=== PATIENT | male | born 2000 | race African-American/Black ===

== ENCOUNTER 2024-10-23 08:52 | Emergency (ER) | payer OTHER, SELFPAY ==
[2024-10-23 08:56] VITALS: BP 142/94; PULSE 69; TEMP 36.8; O2SAT 99; BMI 26.9
--- NOTE | 2024-10-23 09:07 | XR_ITS ---
The [address] [address] Patient Name: DAVE MATA MRN: [id number] date: 2000 Sex: M Assigned Patient Location: ER Current Patient Location: ER Accession/Order Number: [id number] Exam Date: 10/23/2024 09:50 Report Date: 10/23/2024 09:51 At the request of: BENITEZ CHRISTIAN MD Procedure: XR foot RT min 3V RIGHT FOOT - 3 views CLINICAL HISTORY: Right foot injury yesterday. Now with pain. COMPARISON: None FINDINGS: Soft tissue swelling is present. No acute bony process is seen. Joint spaces appear maintained. XR/XR foot RT min 3V IMPRESSION: SOFT TISSUE SWELLING WITHOUT ACUTE BONY PROCESS. Impression dictated by: George Chappell Jr. DJanethOJaneth 10/23/2024 9:51 AM Dictation Location: [place] [address] Electronically authenticated by: [id number] Y Date: 10/23/2024 09:51
[2024-10-23] MEDS: IBUPROFEN 600 MG TABLET PO (09:24)
[2024-10-23] MEDS: BACITRACIN 0.9 GM PACKET 1 PACKET TOPICAL (09:24)
[2024-10-23] MEDS: ADACEL DIPH,PERTUSS(ACELL),TET VAC/PF 0.5 ML ADULT SYRINGE IM (09:25)
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
== END 2024-10-23 10:41 | disposition home or self-care (01) ==
PROVIDERS: Emergency Provider Emergency Medicine
DX: S91.311A Laceration without foreign body, right foot, initial encounter (principal); X58.XXXA Exposure to other specified factors, initial encounter; Z23 Encounter for immunization
CPT/HCPCS: 73630; 90471; 90715; 99284